=== PATIENT | female | born 1965 ===

== ENCOUNTER 2017-11-14 06:08 | Day surgery (SDC) | payer OTHER ==
[~2017-11-14] VITALS: Ht 162.6 cm; Wt 104.9 kg
[~2017-11-14 06:08] MED LIST: ALBU90OI6 INH; AMIT10 PO; AMLO5 PO; CALCAVITD PO; CALCIUM PO; CIPR500 PO; CLOB.05TC TP; Citrate Of Mag300 ML PO; DULO60 PO; FLUT.05NI; FOLI1 PO; Flomax0.4 MG PO; HYDACE10B PO; HYDACE5325 PO; HYDPAM25 PO; MAG PO; META800 PO; METR500 PO; MONT10T PO; Methotrexa25 MG/1 ML; Methotrexa25 MG/1 ML SQ; NAPR500 PO; NEXIUM PO; Naprosyn375 MG PO; Norco 5-325 Ta1 EACH PO; OXYACE5T PO; PANT40; PATADAY 0.2% BOTHEARS; PIRO20 PO; PRAVASTATIN 80MG PO; PROG100 PO; Percocet 5-3251 EACH PO; Pravastatin Sod80 MG PO; RANI150 PO; RXHYD5325 PO; RXOXYACE PO; TAMS.4ER PO; TRAM50 PO; TRIA80TC TOP; Ultram50 MG PO; VALD20 PO; VITAMIN D3 PO
[2018-05-01] MEDS ORDERED: Norco 5-325 Ta1 EACH PO (18:31)
== END 2017-11-14 09:20 | disposition home or self-care (01) ==
LOC: ORSCSDS 06:08
DX: M20.12 Hallux valgus (acquired), left foot (principal); M20.22 Hallux rigidus, left foot; M79.675 Pain in left toe(s); M19.072 Primary osteoarthritis, left ankle and foot; K21.9 Gastro-esophageal reflux disease without esophagitis; E66.01 Morbid (severe) obesity due to excess calories; Z68.39 Body mass index [BMI] 39.0-39.9, adult; Z79.899 Other long term (current) drug therapy
CPT/HCPCS: J2250; J2405; J3010; J7120

== ENCOUNTER → 2018-03-13 | Outpatient (CLI) | payer OTHER | END | disposition home or self-care (01) | LOC: OLS 16:07 → LAB SHORT 16:07 | PROVIDERS: Obstetrics & Gynecology Gynecology | DX: Z91.89 Other specified personal risk factors, not elsewhere classified (principal) | CPT/HCPCS: 87624; G0123 ==

== ENCOUNTER → 2019-01-22 | Outpatient (CLI) | payer OTHER ==
[2019-01-22 15:42] LABS: Lymphs, Synovial Fluid 23 % (0-15); Monocytes/Macrophages, Synovia 10 % (0-65); Neutrophils, Synovial Fluid 67 % (0-24)
[2019-01-22 15:46] LABS: BODY FLUID RBC 0.009 (0-0); RBC Count, Synovial Fluid 9000 /mm3 (0-0); WBC Count, Synovial Fluid 15135 /mm3 (0-180)
[2019-01-22 15:47] LABS: Appearance, Synovial Fluid Hazy (Clear); Color, Synovial Fluid Yellow (None-P Yel)
[2019-01-22 15:59] LABS: Body Fluid Crystals NEG (NEGATIVE)
[2019-01-22 16:00] LABS: Crystals, Synovial Fluid Not Seen (Not Seen)
== END | disposition home or self-care (01) ==
LOC: LAB SHORT 14:36 → LAB 14:36
PROVIDERS: Family Medicine
DX: M25.461 Effusion, right knee (principal)
CPT/HCPCS: 89051; 89060

== ENCOUNTER 2021-07-31 11:40 | Day surgery (SDC) | payer OTHER ==
[~2021-07-31] VITALS: Ht 165.1 cm; Wt 110.0 kg
[~2021-07-31 11:40] MED LIST changes: +Aspir 8181 MG; +OMEP20ER; +PREG100; +THERA-D2000 UNIT
[2021-07-31] MEDS ORDERED: ESTRADIOL1 MG PO (12:52)
[2021-07-31] MEDS ORDERED: B-100 COMPLEX100 MG (12:53)
[2021-07-31] MEDS ORDERED: TESTOSTERONE SL (12:57)
[2021-07-31] MEDS ORDERED: FOLI1 (12:58)
[2021-07-31] MEDS ORDERED: KRILL OIL500 MG (12:58)
[2021-07-31] MEDS ORDERED: METFORMIN HCL500 M2 PO (13:00)
--- NOTE | 2021-07-31 13:56 | NUR ---
07/31/21 7286 JAQUELIN WHALEY PT BECAME FLUSH, REDDENED IN FACE AFTER VANCOMYCIN ABX STARTED PER DR. CALDERÓN. INSURANCE VERIFICATION REPRESENTATIVE, CHARGE NURSE & ANESTESIOLOGIST NOTIFIED. VANCO STOPPED BY ANESTESIOLOGIST. WILL RESUME IN OR ON PUMP.
== END 2021-07-31 15:00 | disposition home or self-care (01) ==
LOC: ORSCSDS 11:40
PROVIDERS: Podiatrist Foot & Ankle Surgery
PROC: 0QBR0ZZ Excision of Left Toe Phalanx, Open Approach (ICD-10-PCS; principal; 2021-07-31 13:45)
DX: M20.62 Acquired deformities of toe(s), unspecified, left foot (principal); G47.33 Obstructive sleep apnea (adult) (pediatric); E11.9 Type 2 diabetes mellitus without complications; E66.01 Morbid (severe) obesity due to excess calories; Z68.41 Body mass index [BMI] 40.0-44.9, adult; Z79.84 Long term (current) use of oral hypoglycemic drugs; Z79.899 Other long term (current) drug therapy
CPT/HCPCS: 82947; J0171; J1100; J1200; J2405; J2704; J3010; J3370; J7120

== ENCOUNTER 2023-05-10 07:16 | Emergency (ER) | payer OTHER ==
[~2023-05-10] VITALS: Ht 165.1 cm; Wt 109.3 kg
[~2023-05-10 07:16] MED LIST changes: +B-100 COMPLEX100 MG; +ESTRADIOL1 MG PO; +FOLI1; +KRILL OIL500 MG; +METFORMIN HCL500 M2 PO; +TESTOSTERONE SL
[2023-05-10 07:32] VITALS: BP 156/76
[2023-05-10 07:51] LABS: Source, Urine Clean Catch
[2023-05-10 07:55] LABS: Appearance, Urine Hazy (Clear); Bilirubin, Urine Neg (Neg); Blood, Urine 5+ (Neg); Color, Urine Yellow (P-Yellow); Glucose Qualitative, Urine Neg (Neg); Ketones, Urine 1+ (Neg); Leukocyte Esterase, Urine Neg (Neg); Nitrite, Urine Neg (Neg); Protein, Urine 2+ (Neg); Urobilinogen, Urine NORM (Normal)
[2023-05-10 08:12] LABS: BASOPHILS ABSOLUTE AUTO 0.06 K/mm3 (0.00-0.23); BASOPHILS PERCENT AUTO 1 % (0-2); EOSINOPHILS ABSOLUTE AUTO 0.25 K/mm3 (0.00-0.68); EOSINOPHILS PERCENT AUTO 4 % (0-6); Hematocrit 36.6 % (33.0-51.0); Hemoglobin 12.8 g/dL (11.5-16.0); IMMATURE GRAN ABSOLUTE AUTO 0.02 K/mm3 (0.00-0.10); IMMATURE GRAN PERCENT AUTO 0 % (0-1); LYMPHOCYTES ABSOLUTE AUTO 1.27 K/mm3 (0.84-5.20); LYMPHOCYTES PERCENT AUTO 18 % (21-46); MONOCYTES ABSOLUTE AUTO 0.56 K/mm3 (0.16-1.47); MONOCYTES PERCENT AUTO 8 % (4-13); Mean Corpuscular HGB 30.2 pg (26.0-34.0); Mean Corpuscular Volume 86 fL (80-100); Mean Platelet Volume 9.8 fL (9.1-12.4); NEUTROPHILS ABSOLUTE AUTO 4.79 K/mm3 (1.96-9.15); NEUTROPHILS PERCENT AUTO 69 % (41-73); Platelet Count 257 K/mm3 (150-400); RDW Coefficient Variation 14.3 % (11.7-14.2); RDW Standard Deviation 43.3 fL (35.1-46.3); Red Blood Cell Count 4.24 M/mm3 (3.80-5.20); White Blood Cell Count 6.95 K/mm3 (4.00-11.30)
[2023-05-10 08:14] LABS: Bacteria Rare /hpf; Red Blood Cells, Urine 50-100 /hpf (0-2); Squamous Epithelial Cells Few /hpf (Few); White Blood Cells, Urine 0-2 /hpf (0-5)
[2023-05-10 08:45] LABS: Albumin, Blood 3.7 g/dL (3.4-5.0); Albumin/Globulin Ratio 1.2 (0.8-1.8); Bilirubin, Total 0.3 mg/dL (0.1-1.0); Bun/Creatinine Ratio 16.8 (12.0-20.0); Calcium, Blood 8.6 mg/dL (8.5-10.1); Creatinine, Blood 0.66 mg/dL (0.40-1.00); Globulin, Blood 3.2 g/dL (2.2-4.0); Potassium, Blood 3.8 mmol/L (3.5-5.5); Total Protein, Blood 6.9 g/dL (6.4-8.2)
[2023-05-10] MEDS ORDERED: Magnesium Citr296 ML PO (09:22)
== END 2023-05-10 09:37 | disposition home or self-care (01) ==
LOC: ER 07:16
PROVIDERS: Emergency Medicine
DX: R10.31 Right lower quadrant pain (principal); K59.00 Constipation, unspecified; I10 Essential (primary) hypertension; M06.9 Rheumatoid arthritis, unspecified; Z91.030 Bee allergy status; Z88.0 Allergy status to penicillin; Z91.040 Latex allergy status; Z91.048 Other nonmedicinal substance allergy status; Z79.82 Long term (current) use of aspirin
CPT/HCPCS: 74177; 80053; 81001; 83690; 85025; 99284-25; Q9967

== ENCOUNTER 2025-03-17 22:14 | Emergency (ER) | payer OTHER ==
[~2025-03-17] VITALS: Ht 170.2 cm; Wt 96.6 kg
[~2025-03-17 22:14] MED LIST changes: +Magnesium Citr296 ML PO
[2025-03-17 22:33] VITALS: BP 132/90
[2025-03-17 23:12] LABS: Source, Urine Clean Catch
[2025-03-17 23:16] LABS: Appearance, Urine Bloody (Clear); Bilirubin, Urine Neg (Neg); Blood, Urine 5+ (Neg); Color, Urine Red (P-Yellow); Glucose Qualitative, Urine Neg (Neg); Ketones, Urine Neg (Neg); Leukocyte Esterase, Urine 2+ (Neg); Nitrite, Urine Neg (Neg); Protein, Urine 4+ (Neg); Specific Gravity, Urine 1.015 (1.003-1.022); Urobilinogen, Urine NORM (Normal)
[2025-03-17 23:27] LABS: Bacteria Mod /hpf; Red Blood Cells, Urine TNTC /hpf (0-2); Squamous Epithelial Cells Rare /hpf (Few); White Blood Cells, Urine 50-100 /hpf (0-5)
[2025-03-18] MEDS ORDERED: CEPH500 PO (02:13)
[2025-03-18] MEDS ORDERED: Cephalexin Monohydrate 500 MG Cap PO ONE (02:15)
== END 2025-03-18 02:22 | disposition home or self-care (01) ==
LOC: ER 22:14
PROVIDERS: Emergency Medicine
DX: N39.0 Urinary tract infection, site not specified (principal); R31.9 Hematuria, unspecified; I10 Essential (primary) hypertension; M06.9 Rheumatoid arthritis, unspecified; Z88.0 Allergy status to penicillin; Z91.040 Latex allergy status; Z91.048 Other nonmedicinal substance allergy status; Z91.030 Bee allergy status; Z79.82 Long term (current) use of aspirin; Z79.84 Long term (current) use of oral hypoglycemic drugs; Z79.899 Other long term (current) drug therapy; Z59.89 Other problems related to housing and economic circumstances
CPT/HCPCS: 81001; 87077; 87086; 87186; 99283; A9270

== ENCOUNTER 2025-09-24 12:09 | Day surgery (SDC) | payer OTHER ==
[~2025-09-24] VITALS: Ht 160 cm; Wt 107.1 kg
[~2025-09-24 12:09] MED LIST changes: +Bupivacaine 0.5% W/EPI 1:200000 SDV 30 ML Vial ONE; +CEPH500 PO
[2025-09-24] MEDS ORDERED: CeFAZolin Sodium 2,000 MG VIAL ONE (12:59)
[2025-09-24] MEDS ORDERED: FentaNYL Citrate 50 MCG/ML 2 ML Injection ONE (14:42)
[2025-09-24] MEDS ORDERED: Midazolam HCl 1MG / ML 2ML Vial ONE (14:52)
[2025-09-24] MEDS ORDERED: Ondansetron HCl 2 MG / ML 2ML Vial ONE (15:04)
[2025-09-24] MEDS ORDERED: Dexamethasone Sod Phos 10 MG/ML 1ML VIAL ONE (15:04)
--- NOTE | 2025-09-24 16:00 | NUR ---
09/24/251599 Chela Jones PT INTERMITTANTLY SLEEPING VSS, ENDORSED TO KIRA MILLER.
[2025-09-24] MEDS ORDERED: HYDROcodone 5-APAP 325 TAB ONE (16:20)
[2025-09-24 16:44] VITALS: BP 141/75
== END 2025-09-24 16:44 | disposition home or self-care (01) ==
LOC: ORSCSDS 12:09
PROVIDERS: Podiatrist Foot & Ankle Surgery
PROC: 0QBN0ZZ Excision of Right Metatarsal, Open Approach (ICD-10-PCS; principal; 2025-09-24 14:15)
DX: M21.621 Bunionette of right foot (principal); K21.9 Gastro-esophageal reflux disease without esophagitis; E78.5 Hyperlipidemia, unspecified; I10 Essential (primary) hypertension; G47.33 Obstructive sleep apnea (adult) (pediatric); E66.9 Obesity, unspecified; Z68.41 Body mass index [BMI] 40.0-44.9, adult; Z79.82 Long term (current) use of aspirin; Z79.899 Other long term (current) drug therapy
CPT/HCPCS: A6253; A9270; J0690; J1100; J2250; J2405; J2704; J3010; J7120